=== PATIENT | male | born 1985 | race Caucasian/White ===

== ENCOUNTER 2017-03-23 08:30 | Emergency (ER) | payer OTHER ==
[~2017-03-23] VITALS: Ht 180.3 cm; Wt 106.6 kg
[~2017-03-23 08:30] MED LIST: ALPRAZOLAM 0.0.25 M1 PO; AZITHROMYCIN 2250 MG PO; ERYTHROMYCIN E3.5 G3 OPHTHALMIC; FLONASE 0.05%50 MCG NASAL; MEDROL4 MG; MEDROLDOSEPACK PO; NAPROSYN500 MG PO; NOHOMEMEDICATIONS; ZPAK PO; ZYRTEC-D TABLE1 EACH PO
[2017-03-23 08:39] VITALS: BP 123/80
[2017-03-23] MEDS ORDERED: PREDNISONE 10 M10 MG PO (08:56)
== END 2017-03-23 09:07 | disposition home or self-care (01) ==
LOC: M.ERS 08:30
DX: R20.2 Paresthesia of skin (principal); F17.210 Nicotine dependence, cigarettes, uncomplicated; Z88.0 Allergy status to penicillin

== ENCOUNTER 2017-11-20 08:52 | Emergency (ER) | payer OTHER ==
[~2017-11-20] VITALS: Ht 180.3 cm; Wt 90.7 kg
[~2017-11-20 08:52] MED LIST changes: +PREDNISONE 10 M10 MG PO
[2017-11-20 09:26] LABS: URINE BILIRUBIN NEGATIVE (Negative); URINE BLOOD NEGATIVE (Negative); URINE CLARITY CLEAR; URINE COLOR YELLOW; URINE GLUCOSE-RANDOM NEGATIVE (Negative); URINE KETONES NEGATIVE (Negative); URINE LEUKOCYTES-REFLEX NEGATIVE (Negative); URINE NITRITE-REFLEX NEGATIVE (Negative); URINE PROTEIN NEGATIVE (Negative); URINE SPECIFIC GRAVITY <= 1.005 (1.005-1.030); URINE UROBILINOGEN 0.2 E.U./dl (0.2-1.0)
[2017-11-20 09:29] LABS: ABSOLUTE EOSINOPHILS 0.1 thou/uL (0.0-0.7); ABSOLUTE LYMPHOCYTES 2.6 thou/uL (0.8-5.3); ABSOLUTE MONOCYTES 0.6 thou/uL (0.0-1.2); ABSOLUTE NEUTROPHILS 1.3 thou/uL (1.6-8.1); BASOPHILS 0.8 %; EOSINOPHILS 1.2 %; HEMATOCRIT 45.6 % (42.0-52.0); HEMOGLOBIN 15.3 gm/dL (14.0-18.0); LYMPHOCYTES 57.4 %; MCHC 33.6 g/dL (28.0-37.0); MCV 86.4 fL (80.0-100.0); MONOCYTES 12.1 %; MPV 9.7 fl. (7.2-11.1); NUCLEATED RBCS 0 /100WBC; PLATELET COUNT* 182 thou/uL (150-400); POLYS 28.5 %; RBC 5.27 mil/uL (4.50-6.00); RDW-CV 13.6 % (10.5-14.5); WBC 4.6 thou/uL (4.0-11.0)
[2017-11-20 09:35] LABS: AMP/METHAMP Negative (Negative); BARBITURATES Negative (Negative); BENZODIAZEPINES Negative (Negative); CALCIUM 8.2 mg/dL (8.5-10.1); COCAINE Negative (Negative); CREATININE 0.8 mg/dL (0.6-1.3); METHADONE Negative (Negative); OPIATES Negative (Negative); PCP Negative (Negative); POTASSIUM 3.7 mmol/L (3.5-5.1); THC Negative (Negative)
[2017-11-20 09:39] LABS: ALBUMIN 3.8 g/dL (3.4-5.0); TOTAL BILIRUBIN 0.6 mg/dL (<0.1-1.0); TOTAL PROTEIN 7.5 g/dL (6.4-8.2)
[2017-11-20 10:07] VITALS: BP 125/79
[2017-11-20 10:08] LABS: APTT 26.4 Seconds (25.0-31.3); PROTIME 10.1 Seconds (9.20-11.50)
--- NOTE | 2017-11-21 10:59 | EKG ---
[place] [address] ELECTROCARDIOGRAM REPORT Name: KELSIE FAIRBANKS Room: [facility].#: [id number] Admission: 11/20/17 Attend Phys: Discharge: 11/20/17 Date of : 89 Report #: [id number] THIS REPORT FOR: //name// [facility] ED Test Date: 2017-11-20 Test Time: 09:00:00 Pat Name: KELSIE FAIRBANKS Department: Room: Gender: M Personal Coach: Michael ZAVALETA : 1985 Requested By: Rudolph Perez Order Number: [id number] MD: Ricky Betancourt Measurements Intervals [place] Rate: 68 P: 3 FL: 125 QRS: 52 QRSD: 82 T: 32 QT: 394 QTc: 420 Interpretive Statements Sinus rhythm Baseline wander in lead(s) I,II,aVR,aVF,V1,V2,V3,V4,V5 Compared to ECG 02/20/2017 12:53:12 No significant changes Electronically Signed On 11-21-2017 10:58:58 CDT by Ricky Betancourt [email or web address] <ELECTRONICALLY SIGNED> By: Ricky Betancourt MD, [facility] 11/21/17 1058 09 09 Ricky Betancourt MD, [facility] /EPI
== END 2017-11-20 10:08 | disposition home or self-care (01) ==
LOC: M.ERS 08:52
PROVIDERS: Family Medicine
DX: F41.9 Anxiety disorder, unspecified (principal); F17.210 Nicotine dependence, cigarettes, uncomplicated; Z79.899 Other long term (current) drug therapy; Z88.0 Allergy status to penicillin; Z88.1 Allergy status to other antibiotic agents

== ENCOUNTER → 2018-02-01 | Outpatient (CLI) | payer OTHER | LOC: M.ULTRA 01-20 07:30 | DX: E80.6 Other disorders of bilirubin metabolism (principal) ==

== ENCOUNTER → 2018-06-09 | Outpatient (CLI) | payer OTHER ==
--- NOTE | 2018-06-09 16:24 | EXE ---
[place] [address] STRESS ECHOCARDIOGRAM Name: KELSIE FAIRBANKS Room: [facility]#: [id number] Admission: 06/09/18 Attend Phys: Raghu Campos, Discharge: Date of : 89 Date of Service: 06/09/18 1624 Report #: [id number] THIS REPORT FOR: //name// APPROVED REPORT Study performed: 06/09/2018 15:17:53 Exam: Stress Echocardiogram Indication: Abnormal EKG, Pericarditis Patient Location: Out-Patient Stress Nurse: Liset Ott RN Supervising Physician: Ricky Betancourt MD Status: routine Ht: 6 ft 1 in HR: 66 bpm BP: 120/76 mmHg Rhythm: NSR Medical History Medical History: Multiple Sclerosis Allergies: Amoxicillin Cardiac Risk Factors: Smoking, FHX of CAD Procedure The patient underwent an Exercise Stress Test using the Morgan Protocol. Blood pressure, heart rate, and EKG were monitored. An Echocardiogram was performed by nutrition technician in four stages in quad fashion. At peak stress, four selected images were obtained and placed side by side with resting images for comparison. Stress Test Details Stress Test: Exercise stress testing was performed using a Morgan protocol. HR Resting HR: 66 bpm Max Heart Rate (APMHR): 190 bpm Max HR Achieved: 164 bpm Target HR (85% APMHR): 161 bpm % of APMHR: 86 Recovery HR: 82 bpm HR response to stress: Normal HR response to stress BP Resting BP: 120/76 mmHg Max BP: 214/57 mmHg Recovery BP: 130/76 mmHg BP response to stress: [place] [address] STRESS ECHOCARDIOGRAM Name: KELSIE FAIRBANKS Room: [facility]#: [id number] Admission: 06/09/18 Attend Phys: Raghu Campos, Discharge: Date of : 89 Date of Service: 06/09/18 1624 Report #: [id number] stress. ECG Resting ECG: Sinus Rhythm Stress ECG: Sinus Rhythm ST Change: Normal Recovery ECG: Sinus Rhythm Recovery ST Change: Normal Clinical Reason for Termination: fatigue Stress Symptoms: Fatigue Exercise duration: 9 min 53 sec Highest Stage Achieved: Stage 4: 4.2 mph at 16% grade. Exercise capacity: 11.6 METs Stress ECG Conclusion negative ecg Pre-Stress Echo The resting Echocardiogram showed normal left ventricular contractility with an estimated Ejection Fraction of about 60-65%. Post-Stress Echo LV chamber size decreases, LV ejection fraction increases, no new wall motion abnormalities are seen. Conclusion Clinical Response: Non-ischemic Exercise Capacity: Superior Stress ECG Response: Non-ischemic Stress Echo Images: Non-ischemic Negative stress echo for ischemia or infarct Other Information Study Quality: Good <Conclusion> Negative stress echo for ischemia or infarct <ELECTRONICALLY SIGNED> By: Raghu Campos MD, FACC 06/09/18 1624 162 162 Raghu Campos MD, FACC /INF
== END ==
LOC: M.CRD 14:51
DX: R94.31 Abnormal electrocardiogram [ECG] [EKG] (principal); Z88.1 Allergy status to other antibiotic agents

== ENCOUNTER 2019-12-28 01:22 | Emergency (ER) | payer OTHER ==
[~2019-12-28] VITALS: Ht 180.3 cm; Wt 90.7 kg
[2019-12-28] MEDS ORDERED: BACLOFEN 10MG T10 MG PO (01:32)
[2019-12-28] MEDS ORDERED: NEURONTIN 300M300 M2 PO (01:33)
[2019-12-28] MEDS ORDERED: GILENYA0.5 MG PO (01:33)
[2019-12-28 02:30] LABS: CREATININE 0.8 mg/dL (0.6-1.3); POTASSIUM 3.6 mmol/L (3.5-5.1)
[2019-12-28 02:31] LABS: ABSOLUTE EOSINOPHILS 0.1 thou/uL (0.0-0.7); ABSOLUTE LYMPHOCYTES 1.1 thou/uL (0.8-5.3); ABSOLUTE MONOCYTES 0.8 thou/uL (0.0-1.2); ABSOLUTE NEUTROPHILS 3.4 thou/uL (1.6-8.1); BASOPHILS 0.3 %; EOSINOPHILS 1.2 %; HEMATOCRIT 42.4 % (42.0-52.0); HEMOGLOBIN 14.5 gm/dL (14.0-18.0); LYMPHOCYTES 20.7 %; MCH 29.3 pg (26.0-34.0); MCHC 34.3 g/dL (28.0-37.0); MCV 85.3 fL (80.0-100.0); MONOCYTES 14.2 %; MPV 9.3 fl. (7.2-11.1); NUCLEATED RBCS 0 /100WBC; PLATELET COUNT* 181 thou/uL (150-400); POLYS 63.6 %; PROTIME 10.3 Seconds (9.20-11.50); RBC 4.97 mil/uL (4.50-6.00); RDW-CV 12.9 % (10.5-14.5); WBC 5.3 thou/uL (4.0-11.0)
[2019-12-28 02:34] LABS: ALBUMIN 3.9 g/dL (3.4-5.0); TOTAL BILIRUBIN 1.3 mg/dL (<0.1-1.0)
[2019-12-28 03:32] VITALS: BP 145/75
--- NOTE | 2019-12-28 11:19 | EKG ---
[place] [address] ELECTROCARDIOGRAM REPORT Name: KELSIE FAIRBANKS Room: [facility]#: [id number] Admission: 12/28/19 Attend Phys: Discharge: 12/28/19 Date of : 89 Date of Service: 12/28/19132 Report #: [id number] THIS REPORT FOR: //name// [facility] ED Test Date: 2019-12-28 Test Time: 01:33:38 Pat Name: KELSIE FAIRBANKS Department: Room: Gender: Director Of Procurement: [place] : 1985 Requested By: Raegan Greer Order Number: [id number] MD: Ricky Betancourt Measurements Intervals [place] Rate: 77 P: 8 OR: 137 QRS: 46 QRSD: 87 T: 22 QT: 363 QTc: 411 Interpretive Statements Sinus rhythm Compared to ECG 11/20/2017 09:00:00 No significant changes Electronically Signed On 12-28-2019 11:19:37 CDT by Ricky Betancourt [email or web address] <ELECTRONICALLY SIGNED> By: Ricky Betancourt MD, [facility] 12/28/19 1119 0133 0133 Ricky Betancourt MD, FACC /EPI
== END 2019-12-28 03:32 | disposition home or self-care (01) ==
LOC: M.ERS 01:22
PROVIDERS: Personal Emergency Response Attendant
DX: F41.9 Anxiety disorder, unspecified (principal); Z20.828 Contact with and (suspected) exposure to other viral communicable diseases; R06.02 Shortness of breath; F17.210 Nicotine dependence, cigarettes, uncomplicated; Z79.899 Other long term (current) drug therapy; Z88.1 Allergy status to other antibiotic agents; Z88.0 Allergy status to penicillin

== ENCOUNTER → 2020-05-15 | Outpatient (CLI) | payer OTHER, MEDICAID ==
[~2020-05-15] MED LIST changes: +BACLOFEN 10MG T10 MG PO; +DIAZEPAM 5 MG5 MG PO; +FLEXERIL PO; +GILENYA0.5 MG PO; +HYDROCODON-ACE1 EAC7 PO; +MECLIZINE HCL25 M1 PO; +NEURONTIN 300M300 M2 PO; +ONDANSETRON ODT4 MG PO
== END ==
LOC: M.RAD 16:17
PROVIDERS: ATTEND Family Medicine
DX: R04.2 Hemoptysis (principal)

== ENCOUNTER 2020-05-17 06:40 | Emergency (ER) | payer OTHER, MEDICAID ==
[~2020-05-17] VITALS: Ht 180.3 cm; Wt 108.9 kg
[~2020-05-17 06:40] MED LIST changes: -DIAZEPAM 5 MG5 MG PO; -FLEXERIL PO; -HYDROCODON-ACE1 EAC7 PO; -MECLIZINE HCL25 M1 PO; -ONDANSETRON ODT4 MG PO
[2020-05-17] MEDS ORDERED: DIAZEPAM 5 MG5 MG PO (06:54)
[2020-05-17] MEDS ORDERED: MECLIZINE HCL25 M1 PO (06:55)
[2020-05-17] MEDS ORDERED: ONDANSETRON ODT4 MG PO (06:55)
[2020-05-17] MEDS ORDERED: HYDROCODON-ACE1 EAC7 PO (07:20)
[2020-05-17] MEDS ORDERED: FLEXERIL PO (07:20)
[2020-05-17 08:18] LABS: CREATININE 0.9 mg/dL (0.6-1.3); POTASSIUM 4.1 mmol/L (3.5-5.1)
[2020-05-17 08:20] VITALS: BP 127/68
--- NOTE | 2020-05-18 11:54 | EKG ---
[place] [address] ELECTROCARDIOGRAM REPORT Name: KELSIE FAIRBANKS Room: [facility]#: [id number] Admission: 05/17/20 Attend Phys: Discharge: 05/17/20 Date of : 89 Date of Service: 05/17/20712 Report #: [id number] THIS REPORT FOR: //name// [facility] ED Test Date: 2020-05-17 Test Time: 07:13:18 Pat Name: KESLIE FAIRBANKS Department: Room: Gender: Residential Lawn Specialist: : 1985 Requested By: Isidro Jones Order Number: [id number] MD: Jose Pak Measurements Intervals [place] Rate: 66 P: 10 [place]: 142 QRS: 41 QRSD: 81 T: 24 QT: 397 QTc: 416 Interpretive Statements Sinus rhythm ST elev, probable normal early repol pattern Compared to ECG 12/28/2019 01:33:38 ST (T wave) deviation now present Electronically Signed On 05-18-2020 11:54:36 CLIENT ACCOUNT ASSISTANT by Jose Pak [email or web address] <ELECTRONICALLY SIGNED> By: Cameron Pak MD, [facility] 05/18/20 1154 2 2 Cameron Pak MD, [facility] /EPI
== END 2020-05-17 08:20 | disposition home or self-care (01) ==
LOC: M.ERS 06:40
PROVIDERS: Emergency Medicine Emergency Medical Services
DX: M25.512 Pain in left shoulder (principal); Z87.891 Personal history of nicotine dependence; Z88.0 Allergy status to penicillin; Z88.1 Allergy status to other antibiotic agents

== ENCOUNTER 2020-10-23 08:12 | Emergency (ER) | payer OTHER, MEDICAID ==
[~2020-10-23] VITALS: Ht 180.3 cm; Wt 99.8 kg
[~2020-10-23 08:12] MED LIST changes: +DIAZEPAM 5 MG5 MG PO; +FLEXERIL PO; +HYDROCODON-ACE1 EAC7 PO; +MECLIZINE HCL25 M1 PO; +ONDANSETRON ODT4 MG PO
[2020-10-23 10:40] VITALS: BP 135/83
== END 2020-10-23 10:40 | disposition home or self-care (01) ==
LOC: M.ERS 08:12
DX: R51.9 Headache, unspecified (principal); Z20.822 Contact with and (suspected) exposure to COVID-19; Z87.891 Personal history of nicotine dependence; Z88.1 Allergy status to other antibiotic agents; Z88.0 Allergy status to penicillin; Z79.899 Other long term (current) drug therapy; Z98.890 Other specified postprocedural states

== ENCOUNTER 2020-11-26 20:49 | Emergency (ER) | payer OTHER, MEDICAID ==
[~2020-11-26] VITALS: Ht 182.9 cm; Wt 99.8 kg
[2020-11-26 23:40] VITALS: BP 140/60
== END 2020-11-26 23:42 | disposition home or self-care (01) ==
LOC: M.ERS 20:49
DX: M77.9 Enthesopathy, unspecified (principal); Z20.822 Contact with and (suspected) exposure to COVID-19; Z79.899 Other long term (current) drug therapy; Z87.891 Personal history of nicotine dependence; Z88.0 Allergy status to penicillin

== ENCOUNTER 2021-03-03 11:44 | Emergency (ER) | payer OTHER, MEDICAID ==
[~2021-03-03] VITALS: Ht 180.3 cm; Wt 99.8 kg
[2021-03-03 13:25] LABS: INFLUENZA A ANTIGEN Negative (Negative); INFLUENZA B ANTIGEN Negative (Negative)
[2021-03-03 14:12] VITALS: BP 130/70
== END 2021-03-03 14:14 | disposition home or self-care (01) ==
LOC: M.ERS 11:44
PROVIDERS: Nurse Practitioner Family
DX: S00.512A Abrasion of oral cavity, initial encounter (principal); Z20.822 Contact with and (suspected) exposure to COVID-19; B34.9 Viral infection, unspecified; Z87.891 Personal history of nicotine dependence; Z79.899 Other long term (current) drug therapy; Z88.1 Allergy status to other antibiotic agents; Z88.0 Allergy status to penicillin; X58.XXXA Exposure to other specified factors, initial encounter; Y93.89 Activity, other specified; Y92.89 Other specified places as the place of occurrence of the external cause; Y99.9 Unspecified external cause status

== ENCOUNTER 2021-03-09 20:30 | Emergency (ER) | payer OTHER, MEDICAID ==
[~2021-03-09] VITALS: Ht 180.3 cm; Wt 99.8 kg
[2021-03-09 21:45] LABS: INFLUENZA A ANTIGEN Negative (Negative); INFLUENZA B ANTIGEN Negative (Negative)
[2021-03-09 22:46] VITALS: BP 121/70
== END 2021-03-09 22:46 | disposition home or self-care (01) ==
LOC: M.ERS 20:30
PROVIDERS: Emergency Medicine
DX: J06.9 Acute upper respiratory infection, unspecified (principal); Z20.822 Contact with and (suspected) exposure to COVID-19; Z98.890 Other specified postprocedural states; Z79.899 Other long term (current) drug therapy; Z88.1 Allergy status to other antibiotic agents; Z88.0 Allergy status to penicillin; Z87.891 Personal history of nicotine dependence